=== PATIENT | male | born 1970 | race Caucasian/White ===

== ENCOUNTER 2016-11-29 15:22 | Emergency (ER) | payer OTHER ==
[2016-11-29 16:16] LABS: HEMOGLOBIN 13.7 gm/dl (14.0-17.5); RED BLOOD COUNT 4.53 M/UL (4.20-5.50); WHITE BLOOD COUNT 10.2 K/UL (4.5-11.0)
[2016-11-29 16:31] LABS: BUN/CREATININE RATIO 17 (0-10)
== END 2016-11-29 18:25 | disposition home or self-care (01) ==
LOC: ER1 15:22
PROVIDERS: Physician Assistant Medical
DX: M10.021 Idiopathic gout, right elbow (principal); I10 Essential (primary) hypertension; K21.9 Gastro-esophageal reflux disease without esophagitis; Z79.899 Other long term (current) drug therapy
CPT/HCPCS: 36415; 73080; 80048; 84550; 85025; 99283